=== PATIENT | female | born 1965 | race Caucasian/White ===

== ENCOUNTER 2016-09-12 18:15 | Emergency (ER) | payer OTHER ==
[~2016-09-12 18:15] MED LIST: ACTIGALL300 MG; ADVAIR 2501 DISK W/D PO; ALBUTEROL17 GM INH; ALLERGY MEDICATION PO; ANTIVERT PO; ARIXTRA10 MG/0.8 SQ; ASPIRIN; ASPIRIN PO; B-12500 MCG PO; BUSPAR15 M1 PO; BUSPIRONE HCL10 MG PO; CALTRATE PLUS T1 TAB; CIPRO PO; CLARITIN10 M2 PO; COUMADIN; COUMADIN PO; CYCLOBENZAPRINE5 MG PO; CYMBALTA PO; DICYCLOMINE HCL20 MG PO; DOXYCYCLINE PO; DULOXETINE HCL60 MG PO; DUONEB 2.5-0.5 M3 ML NEB; FERRO-TIME325 MG PO; FERROUS SULFATE; FIORICET 50-321 EACH PO; FLAX SEED OIL1000 MG; FLEXERIL PO; FLOVENT HFA12 GM INH; HYDROCODON-ACE1 EAC7 PO; IMDUR; KCL; LASIX PO; LASIX20 MG PO; LEVOXYL0.137 MG PO; LEXAPRO; LIDODERM30 EA TOP; LO-DOSE ASPIRIN81 M1 PO; LOPRESSOR; LORATADINE PO; LORTAB 5/500 TA1 TA1 PO; LORTAB 7.5-5001 TAB; LOTREL; LOVENOX100 MG/ML SUBQ; LYRICA100 MG PO; MAGNESIUM SULFATE PO; MAGNESIUM250 M1 PO; MAGNESIUM400 MG PO; MAGNESIUM500 MG PO; MEDROL DOSEPAK4 MG PO; METOPROLOL PO; METOPROLOL SUCC25 MG PO; METOPROLOL TAR25 MG DOB; METOPROLOL TAR25 MG PO; MICRO-K PO; MIRALAX255 GM PO; MULTI-VITAMIN1 TAB; NEURONTIN; NEXIUM; OYSTER CALCIUM500 MG PO; PATIENT'S PHARMACY; PERCOCET 51 UDTAB 5/ PO; PERCOCET5/325 PO; PHENERGAN PO; PHENERGAN W/CO120 ML PO; PRAVACHOL80 MG PO; PRAVASTATIN SOD40 MG PO; PREDNISONE PO; PRILOSEC PO; PROAIR HFA8.5 GM IH; RITE-AID PHARMACY; SYNTHROID PO; SYNTHROID137 MCG PO; TYLOX 5/500 CAP1 CAP PO; VALTREX PO; VICODIN 5/500 T1 TAB PO; VIT B PO; VIT B-12; VIT B-12 PO; VITAMIN B-1000 MCG/1 IJ; VITAMIN B122500 MCG PO; VITAMIN C500 M1 PO; WARFARIN SODIUM10 MG PO; WELLBUTRIN; WELLBUTRIN XL; XARELTO20 MG PO; ZITHROMAX PO; ZOFRAN ODT4 MG PO; ZOFRAN PO; [UNRECOGNIZED DRUG - OTHER] PO; [UNRECOGNIZED DRUG - REMARK]
[2016-09-12 19:10] LABS: ALBUMIN SERUM 3.8 g/dL (3.5-5.0); ALKALINE PHOSPHATASE 86 U/L (32-92); ALT (SGPT) 15 U/L (10-40); AST (SGOT) 17 U/L (10-42); BILIRUBIN, DIRECT 0.1 mg/dL (0.0-0.2); BILIRUBIN,INDIRECT 0.3 mg/dL (0.0-0.9); BILIRUBIN,TOTAL 0.4 mg/dL (0.2-2.0); BLOOD UREA NITROGEN 16 mg/dL (9-23); BUN/CREATININE RATIO 26.66; CARBON DIOXIDE 29 mmol/L (22-31); CHLORIDE 102 mmol/L (100-111); CPK (CREATINE PHOSPHOKINASE) 64 IU/L (26-140); CREATININE SERUM 0.6 mg/dL (0.6-1.4); GLOM FILT RATE Estimated ABOVE60 mL/min (>60); GLUCOSE FASTING 93 mg/dL (70-110); POTASSIUM 3.8 mmol/L (3.5-5.1); PROTEIN TOTAL SERUM 7.4 g/dL (6.0-8.3); SODIUM 140 mmol/L (135-145)
[2016-09-12 19:37] LABS: BASOPHIL% 0.3 % (0-2.5); EOSINOPHIL# 0.1 X10e3 (0-0.7); HEMATOCRIT 32.5 % (35.0-45.0); HEMOGLOBIN 13.7 gm/dL (12.0-16.0); LYMPHOCYTE# 0.8 X10e3 (1.0-3.5); LYMPHOCYTE% 18.3 % (17.0-45.0); MEAN CELL VOLUME 94.7 FL (83-96); MEAN CORPUSCULAR HGB CONC 42.2 g/dL (30-36); MEAN PLATELET VOLUME 8.2 FL (6.5-11.5); MONOCYTE# 0.4 X10e3 (0-1.0); MONOCYTE% 10.1 % (3.0-12.0); NEUTROPHIL# 2.9 X10e3 (1.5-7.1); NEUTROPHIL% 69.3 % (40-75); RED BLOOD COUNT 3.44 X10e (3.90-5.30); WHITE BLOOD COUNT 4.1 X10e3 (4.0-10.5)
[2016-09-12 19:38] LABS: PLATELET COUNT 193 X10e3 (140-420)
[2016-09-12 19:39] LABS: DIFF IND NO
[2016-09-19] MEDS ORDERED: METOPROLOL TAR25 MG (14:39)
[2016-09-19] MEDS ORDERED: LASIX20 MG PO (14:40)
[2016-09-19] MEDS ORDERED: PRAVASTATIN SOD80 MG PO (14:40)
[2016-09-19] MEDS ORDERED: DULOXETINE HCL60 MG PO (14:40)
[2016-09-19] MEDS ORDERED: MULTI-VITAMIN1 EAC1 PO (14:40)
[2016-09-19] MEDS ORDERED: CYCLOBENZAPRINE5 MG PO (14:41)
[2016-09-19] MEDS ORDERED: UNITHROID150 MCG PO (14:41)
[2016-09-19] MEDS ORDERED: BUSPAR15 M3 (14:42)
[2016-09-19] MEDS ORDERED: XARELTO20 MG PO (14:42)
== END 2016-09-12 19:40 | disposition home or self-care (01) ==
LOC: CED 18:15
PROVIDERS: Emergency Medicine
DX: M25.511 Pain in right shoulder (principal); R20.2 Paresthesia of skin; M54.9 Dorsalgia, unspecified; E78.5 Hyperlipidemia, unspecified; I10 Essential (primary) hypertension
CPT/HCPCS: 36415; 80048; 80076; 82550; 85025; 99283

== ENCOUNTER → 2016-09-20 | Day surgery (SDC) | payer OTHER ==
[~2016-09-20] MED LIST changes: +ACETAMINOPHEN PO; +AUGMENTIN PO; +BUSPAR15 M3; +METOPROLOL TAR25 MG; +MULTI-VITAMIN1 EAC1 PO; +PRAVASTATIN SOD80 MG PO; +UNITHROID150 MCG PO
--- NOTE | ~2016-09-20 | OR ---
Unit #: [id number] #: [id number] Patient: MARGARET CARTER [id number] [address] [place], [place] [address] [id number] O MR#: [id number] NAME: MARGARET CARTER ROOM: Date of Procedure: 09/20/2016 Admission Date: 09/20/2016 Surgeon: Keshawn Kirkland M.D. : 1965 Attending Physician: Keshawn Kirkland M.D. Primary Care Physician: Hernan Callahan Jr., M.D. OPERATIVE REPORT PREOPERATIVE DIAGNOSES The patient has presented for surveillance colonoscopy. She has personal history of colon polyps as well as strong family history of colon cancer in multiple first-degree relatives. PROCEDURE PERFORMED Colonoscopy up to cecum. POSTOPERATIVE DIAGNOSES 1. Mild sigmoid and descending colon diverticulosis. 2. Otherwise examination normal up to cecum. The quality of the prep was fair to poor especially in the right colon. As a result, small polyps could easily have been missed during examination. No large polyps or colon cancer could have missed however. RECOMMENDATIONS The patient should have a repeat examination in 3 to 5 years; however, during the next examination should have double prep because the quality of the prep today. SEDATION USED MAC. DESCRIPTION OF PROCEDURE Following detailed explanation of the potential risks and complications of a colonoscopy, namely perforation, bleeding, and complications related to sedation, the patient was brought to GI lab and laid in the left lateral decubitus position. A digital rectal examination was performed, which was normal. Lubricated tip of the Olympus video colonoscope was inserted through the anus and advanced under direct vision. The scope was then passed up to sigmoid into descending colon. Multiple small diverticula were noticed in this area. The scope tip was then navigated all the way up to cecum with visualization of the ileocecal valve and the appendiceal orifice. Preparation was fair to poor especially in the right colon with lot of liquid and semi-solid stool residue was seen, which had to be suctioned and frequently lavaged. Successive segments of the colonic mucosa were examined upon withdrawal and appeared unremarkable except for a few diverticula noted earlier. The patient did not have any large polyps or colon cancer nor any hemorrhoids were seen. Small polyps could easily have been missed during the examination due to the fact the patient's preparation was not optimum. The scope was then withdrawn. The patient returned to the recovery area. She tolerated the procedure Unit #: [id number] #: [id number] Patient: MARGARET CARTER without any postprocedure complications. Dictated by... Janet Resendez/natalie TD: 09/21/2016 02:51 JOB #: [id number] OPERATIVE REPORT Page 1 of 1 X Keshawn Kirkland MD X PROCEDURE OPERATIVE NOTE
== END | disposition home or self-care (01) ==
LOC: COPS 12:49
PROVIDERS: Internal Medicine Gastroenterology
PROC: 0DJD8ZZ Inspection of Lower Intestinal Tract, Via Natural or Artificial Opening Endoscopic (ICD-10-PCS; principal; 2016-09-20 14:30)
DX: Z12.11 Encounter for screening for malignant neoplasm of colon (principal); Z86.010 Personal history of colon polyps; Z80.0 Family history of malignant neoplasm of digestive organs; K57.30 Diverticulosis of large intestine without perforation or abscess without bleeding; E03.9 Hypothyroidism, unspecified; I10 Essential (primary) hypertension; E66.01 Morbid (severe) obesity due to excess calories; Z68.42 Body mass index [BMI] 45.0-49.9, adult; Z98.84 Bariatric surgery status; J45.909 Unspecified asthma, uncomplicated; J44.9 Chronic obstructive pulmonary disease, unspecified; I34.1 Nonrheumatic mitral (valve) prolapse; M19.90 Unspecified osteoarthritis, unspecified site; F41.9 Anxiety disorder, unspecified; F32.9 Major depressive disorder, single episode, unspecified; M48.00 Spinal stenosis, site unspecified; N28.89 Other specified disorders of kidney and ureter; Z79.899 Other long term (current) drug therapy; Z96.653 Presence of artificial knee joint, bilateral; Z90.710 Acquired absence of both cervix and uterus; Z88.8 Allergy status to other drugs, medicaments and biological substances

== ENCOUNTER 2016-11-08 21:34 | Observation (INO) | payer OTHER ==
--- NOTE | ~2016-11-08 | US84 ---
[id number] [facility] [address] [facility]. [place], [place] [address] [id number] E MR#: [id number] Acc #: [id number] NAME: MARGARET CARTER : 1965 SEX: F STUDY DATE/TIME: 11/08/2016 23:29 UNIT: JOSUE ROOM: STUDY DESCRIPTION: US LE Veins Complete Escobar Stdy Attending Physician: Ernesto Babcock D.O. Ordering Physician: Ernesto Babcock D.O. Primary Care Physician: Hernan Callahan Jr., M.D. MEDICAL IMAGING REPORT This report is preliminary unless electronic signature is present EXAM Bilateral leg vein Doppler, 11/08 23:29 INDICATIONS Extreme shortness of air over the last 3 days that has gotten worse today. Prior history of DVT. TECHNIQUE Venous ultrasound examination of both lower extremities was performed using grayscale, spectral Doppler and color flow Doppler imaging. FINDINGS The examination is negative. There is no evidence of deep venous thrombus from the groin to the lower calf bilaterally. Visualized greater saphenous veins are also patent. IMPRESSION Negative examination. No evidence of lower extremity deep venous thrombosis. Dictated by... Flako Diamond Jr., M.D. THIS IS AN ELECTRONICALLY VERIFIED REPORT Flako Diamond Jr., M.D. at 11/09/2016 6:01 AM BOZENA/cammy TD: 11/09/2016 00:57 JOB #: [id number] MEDICAL IMAGING REPORT Page 1 of 1 COPY
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
--- NOTE | ~2016-11-08 | EKG ---
PATIENT: MARGARET CARTER UNIT #: [id number] Ventricular Rate: 75 BPM Atrial Rate: 75 BPM P-R Interval: 184 ms QRS Duration: 96 ms Q-T Interval: 448 ms QTC Calculation(Bezet): 500 ms P Carolina: 40 degrees Calculated R [place]: -9 degrees Calculated T [place]: 8 degrees Diagnosis Line: Normal sinus rhythm Diagnosis Line: Left atrial enlargement Diagnosis Line: Left ventricular hypertrophy Diagnosis Line: Prolonged QT Diagnosis Line: Abnormal ECG Diagnosis Line: When compared with ECG of 07-AUG-2016 18:34, Diagnosis Line: No significant change was found Diagnosis Line: Confirmed by GEORGE MANE MD ([id number]) on 11/09/2016 Diagnosis Line: 10:40:34 AM INTERPRETING MD: ANTONIETTA ORTIZ
--- NOTE | ~2016-11-08 | BMI ---
[facility] Nutrition Therapy DATE: 11/09/16 Patient: MARGARET CARTER Physician: BRIAN Address: [address] [place] [address] Room/Bed: [address] [place] [address], Zip: [place] [address] Admit Date: 11/09/16 Date of : [birth year] Height: 5 11 Weight: 320 145.14 HIGH BMI NOTE: DX: 51 y/o female admitted with chest pain ANTHROPOMETRICS: Ht: 71", Wt: 145 kg, BMI: 44 (Stage III obese) DIET: Healthy heart diet INTERVENTION: Restricted diet, meds/fluids per MD RECOMMENDATIONS: Continue current diet to promote a gradual weight loss towards a healthy BMI range. Respectfully, Chika Adame RD, LD Food and Nutritional Services [facility] cc: client file
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
--- NOTE | ~2016-11-08 | CT16 ---
[facility] A Service of [facility] RADIOLOGY TEXT RESULTS PATIENT: MARGARET CARTER [facility] [id number] : [birth year] UNIT #: [id number] AGE: [address]: Tani Morris MD SEX: F ORDER DR: [id number] [facility] [address] [place], [place] [address] [id number] E MR#: [id number] Acc #: [id number] NAME: MARGARET CARTER : 1965 SEX: F STUDY DATE/TIME: 11/09/2016 00:10 UNIT: JOSUE ROOM: STUDY DESCRIPTION: CT Angio Chest for PE Attending Physician: Ernesto Babcock D.O. Ordering Physician: Ernesto Babcock D.O. Primary Care Physician: Hernan Callahan Jr., M.D. MEDICAL IMAGING REPORT This report is preliminary unless electronic signature is present EXAM Chest CTA, 11/09 at 0010 hours INDICATIONS Left side back pain and shortness of air for 3 days with weakness. Elevated D-dimer. TECHNIQUE Axial images were obtained through the chest following IV contrast administration. 3-D reformats were obtained. Comparison is made with 06/11/2013. This CT exam was performed with one or more of the following radiation dose reduction techniques: Automatic exposure control, adjustment of mA and/or kV according to patient size, and iterative reconstruction. FINDINGS Study is nondiagnostic for evaluation of the pulmonary circulation due to poor bolus timing. No aortic dissection is seen. There is no pleural or pericardial effusion. There is no adenopathy. There is some chronic scarring in the left upper lobe, which is unchanged. Lungs are otherwise clear. There is coronary artery disease. For a description of findings in the upper abdomen, please see the abdomen and pelvis CT report, dictated separately. IMPRESSION 1. No aortic dissection. 2. Nondiagnostic examination for determination of pulmonary embolism due to poor bolus timing. Consider repeat study or V/Q scan, if needed. 3. Coronary artery disease. 4. Chronic scarring in the left upper lobe. [facility] A Service of [facility] RADIOLOGY TEXT RESULTS PATIENT: MARGARET CARTER LOCATION: [facility] [id number] : [birth year] UNIT #: [id number] AGE: [address]: Tani Morris MD SEX: F ORDER DR: Dictated by... Flako Diamond Jr., M.D. THIS IS AN ELECTRONICALLY VERIFIED REPORT Flako Diamond Jr., M.D. at 11/09/2016 6:02 AM BOZENA/cammy TD: 11/09/2016 02:27 JOB #: [id number] MEDICAL IMAGING REPORT Page 1 of 1 COPY
--- NOTE | ~2016-11-08 | CT2 ---
[facility] A Service of [facility] RADIOLOGY TEXT RESULTS PATIENT: MARGARET CARTER LOCATION: [facility] [id number] : [birth year] UNIT #: [id number] AGE: [address]: Tani Morris MD SEX: F ORDER DR: [id number] [facility] [address] [place], [place] [address] [id number] E MR#: [id number] Acc #: [id number] NAME: MARGARET CARTER : 1965 SEX: F STUDY DATE/TIME: 11/09/2016 00:10 UNIT: JOSUE ROOM: STUDY DESCRIPTION: CT Abd and Pelv W Cont Attending Physician: Ernesto Babcock D.O. Ordering Physician: Ernesto Babcock D.O. Primary Care Physician: Hernan Callahan Jr., M.D. MEDICAL IMAGING REPORT This report is preliminary unless electronic signature is present EXAM CT abdomen and pelvis, 11/09 at 0010 hours INDICATIONS Left side back pain, weakness, shortness of air for 3 days. TECHNIQUE Axial images were obtained through the abdomen and pelvis following IV contrast administration. Multiplanar reformats were obtained. Comparison is made with 10/25/2015. This CT exam was performed with one or more of the following radiation dose reduction techniques: Automatic exposure control, adjustment of mA and/or kV according to patient size, and iterative reconstruction. FINDINGS ABDOMEN: For a description of findings in the lung bases, please see the chest CT report, dictated separately. Gallbladder is surgically absent. There is no biliary obstruction. Solid organs are normal. IVC filter remains in place. No free fluid or adenopathy. Patient is status post gastric bypass. GI tract is otherwise grossly normal, allowing for the lack of oral contrast. PELVIS: The appendix is normal. The remainder of the unopacified GI tract is normal as well. Urinary bladder is normal. Uterus is surgically absent. There is no free fluid. IMPRESSION 1. No acute findings in the abdomen or pelvis. 2. Gastric bypass. Unopacified GI tract, including the appendix, is otherwise normal. 3. IVC filter remains in place. 4. Cholecystectomy and hysterectomy. 5. Normal nonobstructed kidneys. [facility] A Service of [facility] & [facility] RADIOLOGY TEXT RESULTS PATIENT: MARGARET CARTER LOCATION: [facility] [address]57 : [birth year] UNIT #: [id number] AGE: [address]: Tani Morris MD SEX: F ORDER DR: Dictated by... Flako Diamond Jr., M.D. THIS IS AN ELECTRONICALLY VERIFIED REPORT Flako Diamond Jr., M.D. at 11/09/2016 6:02 AM BOZENA/cammy TD: 11/09/2016 02:30 JOB #: [id number] MEDICAL IMAGING REPORT Page 1 of 1 COPY
--- NOTE | ~2016-11-08 | CR72 ---
[facility] A Service of [facility] RADIOLOGY TEXT RESULTS PATIENT: MARGARET CARTER LOCATION: [facility] [address]67 : [birth year] UNIT #: [id number] AGE: [address]: Tani Morris MD SEX: F ORDER DR: [id number] [facility] [address] [place], [place] [address] [id number] E MR#: [id number] Acc #: [id number] NAME: MARGARET CARTER : 1965 SEX: F STUDY DATE/TIME: 11/08/2016 22:24 UNIT: [facility] [employer] ROOM: STUDY DESCRIPTION: CR Chest Single View Portable Attending Physician: Ernesto Babcock D.O. Ordering Physician: Ernesto Babcock D.O. Primary Care Physician: Hernan Callahan Jr., M.D. MEDICAL IMAGING REPORT This report is preliminary unless electronic signature is present EXAM Portable chest. DATE OF EXAM 11/08/2016, 22:24. INDICATIONS Left side body pain and pain with breathing. Shortness of air. Symptoms for 3 days. FINDINGS AP portable chest is compared with 08/23/2016. Cardiac mediastinal contours are normal. The lungs are clear. No pneumothorax. Surgical clips noted in the left supraclavicular region. IMPRESSION No active disease. Dictated by... Flako Diamond Jr., M.D. THIS IS AN ELECTRONICALLY VERIFIED REPORT Flako Diamond Jr., M.D. at 11/09/2016 6:01 AM BOZENA/karen TD: 11/08/2016 23:30 JOB #: [id number] MEDICAL IMAGING REPORT Page 1 of 1 COPY
[~2016-11-08 21:34] MED LIST changes: -ACETAMINOPHEN PO; -AUGMENTIN PO
[2016-11-08 22:48] LABS: BASOPHIL% 0.3 % (0-2.5); EOSINOPHIL# 0.2 X10e3 (0-0.7); EOSINOPHIL% 3.1 % (0.0-7.0); HEMATOCRIT 38.9 % (35.0-45.0); HEMOGLOBIN 13.9 gm/dL (12.0-16.0); LYMPHOCYTE% 19.4 % (17.0-45.0); MEAN CELL VOLUME 92.2 FL (83-96); MEAN CORPUSCULAR HEMOGLOBIN 33.1 PG (28-34); MEAN CORPUSCULAR HGB CONC 35.9 g/dL (30-36); MEAN PLATELET VOLUME 8.4 FL (6.5-11.5); MONOCYTE# 0.6 X10e3 (0-1.0); MONOCYTE% 11.1 % (3.0-12.0); NEUTROPHIL# 3.3 X10e3 (1.5-7.1); NEUTROPHIL% 66.1 % (40-75); PLATELET COUNT 213 X10e3 (140-420); RED BLOOD COUNT 4.21 X10e (3.90-5.30); RED CELL DISTRIBUTION WIDTH 13.7 % (11.0-15.5)
[2016-11-08 22:49] LABS: DIFF IND NO
[2016-11-08 23:00] LABS: PARTIAL THROMBOPLASTIN TIME 26.6 SECONDS (23.5-31.3); PROTHROMBIN TIME (PATIENT) 10.9 SECONDS (9.6-11.5)
[2016-11-08 23:02] LABS: POC - CKMB <1.0 ng/mL (0.0-7.9); POC - TROPONIN <0.05 ng/mL (<=0.05)
[2016-11-08 23:17] LABS: ALBUMIN SERUM 4.1 g/dL (3.5-5.0); BILIRUBIN, DIRECT 0.1 mg/dL (0.0-0.2); BILIRUBIN,INDIRECT 0.7 mg/dL (0.0-0.9); BILIRUBIN,TOTAL 0.8 mg/dL (0.2-2.0); BUN/CREATININE RATIO 32.5; CALCIUM SERUM 9.7 mg/dL (8.4-10.2); CREATININE SERUM 0.8 mg/dL (0.6-1.4); GLOM FILT RATE Estimated 84.2 mL/min (>60); POTASSIUM 3.8 mmol/L (3.5-5.1); PROTEIN TOTAL SERUM 7.5 g/dL (6.0-8.3)
[2016-11-09 03:05] LABS: URINE SOURCE CLEAN CATCH
[2016-11-09 03:10] LABS: URINE APPEARANCE CLEAR; URINE BILIRUBIN NEG (NEG); URINE BLOOD NEG (NEG); URINE COLOR YELLOW; URINE GLUCOSE NEG (NEG); URINE KETONE NEG (NEG); URINE LEUKOCYTE ESTERASE 2+ (NEG); URINE NITRATE NEG (NEG); URINE PROTEIN NEG (NEG); URINE SPECIFIC GRAVITY 1.044 (1.003-1.035)
[2016-11-09 03:13] LABS: CULTURE INDICATED? YES; URBCS1 AUWI 0-2 /[HPF] (0-2); URINE BACTERIA AUWI 1+ (NEGATIVE); URINE SQUAMOUS EPITHELIAL CELL OCC /[HPF]
[2016-11-09 07:36] LABS: CK TOTAL 52 IU/L (26-140)
[2016-11-09 12:07] LABS: CHOLESTEROL 131 mg/dL (0-200); HDL CHOLESTEROL 38 mg/dL (35-95); LDL CHOLESTEROL 68 mg/dL (-130); LDL/HDL RATIO 2 RATIO (0-4); TRIGLYCERIDES 127 mg/dL (10-160)
[2016-11-09 12:13] LABS: %MB 1.4 % (0.0-4.0)
[2016-11-09 17:21] LABS: CK TOTAL 55 IU/L (26-140)
[2016-11-10 06:50] LABS: BUN/CREATININE RATIO 18.57; CALCIUM SERUM 9.1 mg/dL (8.4-10.2); CREATININE SERUM 0.7 mg/dL (0.6-1.4); GLOM FILT RATE Estimated 98.9 mL/min (>60); POTASSIUM 3.6 mmol/L (3.5-5.1)
[2016-11-10] MEDS ORDERED: ACETAMINOPHEN PO (19:34)
[2016-11-10] MEDS ORDERED: AUGMENTIN PO (19:36)
== END 2016-11-10 20:30 | disposition home or self-care (01) | DRG 552 ==
LOC: CED 21:34 → CEDOF 11-09 02:17 → CED 11-09 02:17 → C3A PCU 11-09 02:17 → CEDOF 11-09 08:13 → C3A PCU 11-10 20:30
PROVIDERS: Emergency Medicine; Hospitalist; Internal Medicine
DX: M54.9 Dorsalgia, unspecified (principal); Z86.718 Personal history of other venous thrombosis and embolism; Z79.01 Long term (current) use of anticoagulants; E66.01 Morbid (severe) obesity due to excess calories; Z85.71 Personal history of Hodgkin lymphoma; G47.33 Obstructive sleep apnea (adult) (pediatric); E03.9 Hypothyroidism, unspecified; M54.5 Low back pain; G89.29 Other chronic pain; Z92.21 Personal history of antineoplastic chemotherapy; Z92.3 Personal history of irradiation; Z86.69 Personal history of other diseases of the nervous system and sense organs
CPT/HCPCS: 36415; 71010; 71275; 74177; 80048; 80061; 80076; 81003; 82550; 82553; 83690; 84443; 84484; 85025; 85379; 85610; 85730; 87086; 93005; 93306; 93970; 96374; 96375; 99285; G0378; J1170; J2405; Q9967

== ENCOUNTER 2017-02-25 18:46 | Emergency (ER) | payer OTHER ==
[~2017-02-25] VITALS: Ht 180.3 cm; Wt 145.1 kg
--- NOTE | ~2017-02-25 | CT71 ---
[facility] A Service of [facility] RADIOLOGY TEXT RESULTS PATIENT: MARGARET CARTER LOCATION: [facility] : [birth year] UNIT #: [id number] AGE: [address]: Justice Shabazz MD SEX: F ORDER DR: [id number] [facility] [address] [place], [place] [address] [id number] E MR#: [id number] Acc #: [id number] NAME: MARGARET CARTER : 1965 SEX: F STUDY DATE/TIME: 02/25/2017 21:54 UNIT: JOSUE ROOM: STUDY DESCRIPTION: CT Head Wo Contrast Attending Physician: Justice Shabazz Ordering Physician: Balbir Shabazz M.D. Primary Care Physician: Hernan Callahan Jr., M.D. MEDICAL IMAGING REPORT This report is preliminary unless electronic signature is present EXAM CT head without contrast INDICATION Right-sided facial twitching today. PROCEDURE Unenhanced CT of the head This CT exam was performed with one or more of the following radiation dose reduction techniques: automatic exposure control, adjustment of mA and/or kV according to patient size, and iterative reconstruction. COMPARISON 05/01/2014 FINDINGS No acute hemorrhage, abnormal mass effect, extraaxial fluid collection or hydrocephalus. No depressed calvarial fracture. Paranasal sinuses and mastoid air cells clear. IMPRESSION No acute intracranial findings. Dictated by... Balbir Perez M.D. THIS IS AN ELECTRONICALLY VERIFIED REPORT Balbir Perez M.D. at 02/26/2017 10:02 PM EED/ljd [facility] A Service of [facility] RADIOLOGY TEXT RESULTS PATIENT: MARGARET CARTER LOCATION: [facility] : [birth year] UNIT #: [id number] AGE: [address]: Justice Shabazz MD SEX: F ORDER DR: TD: 02/26/2017 05:20 JOB #: [id number] MEDICAL IMAGING REPORT Page 1 of 1 COPY
[~2017-02-25 18:46] MED LIST changes: +ACETAMINOPHEN PO; +AUGMENTIN PO
[2017-02-25 21:07] LABS: PARTIAL THROMBOPLASTIN TIME 24.4 SECONDS (23.5-31.3); PROTHROMBIN TIME (PATIENT) 10.8 SECONDS (10.0-11.7)
[2017-02-25 21:23] LABS: BUN/CREATININE RATIO 21.25; CREATININE SERUM 0.8 mg/dL (0.6-1.4); GLOM FILT RATE Estimated 84.2 mL/min (>60); POTASSIUM 4.3 mmol/L (3.5-5.1)
[2017-02-25 21:30] LABS: BASOPHIL% 0.4 % (0-2.5); DIFF IND NO; EOSINOPHIL# 0.1 X10e3 (0-0.7); EOSINOPHIL% 1.4 % (0.0-7.0); HEMATOCRIT 39.3 % (35.0-45.0); HEMOGLOBIN 13.1 gm/dL (12.0-16.0); LYMPHOCYTE# 1.2 X10e3 (1.0-3.5); LYMPHOCYTE% 17.9 % (17.0-45.0); MEAN CELL VOLUME 86.8 FL (83-96); MEAN CORPUSCULAR HGB CONC 33.5 g/dL (30-36); MEAN PLATELET VOLUME 8.4 FL (6.5-11.5); MONOCYTE# 0.5 X10e3 (0-1.0); MONOCYTE% 8.3 % (3.0-12.0); NEUTROPHIL# 4.7 X10e3 (1.5-7.1); PLATELET COUNT 211 X10e3 (140-420); RED BLOOD COUNT 4.53 X10e (3.90-5.30); RED CELL DISTRIBUTION WIDTH 13.9 % (11.0-15.5); WHITE BLOOD COUNT 6.5 X10e3 (4.0-10.5)
== END 2017-02-26 00:44 | disposition home or self-care (01) ==
LOC: CED 18:46
PROVIDERS: Emergency Medicine
DX: F95.8 Other tic disorders (principal); E03.9 Hypothyroidism, unspecified; Z88.8 Allergy status to other drugs, medicaments and biological substances
CPT/HCPCS: 36415; 70450; 80048; 84443; 85025; 85610; 85730; 96374; 99284; J2060